=== PATIENT | male | born 1930 | race African-American/Black ===

== ENCOUNTER 2018-10-08 19:34 | Inpatient (IN) | payer MEDICARE, MEDICAID, OTHER ==
[~2018-10-08] VITALS: Ht 172.7 cm; Wt 77.1 kg
[2018-10-08 21:37] LABS: HEMOGLOBIN. 14.5 g/dL (14.0-18.0); MEAN CORPUSCULAR HEMOGLOBIN 26.8 pg (28.0-32.0); MEAN CORPUSCULAR VOLUME 81.3 fL (80.0-94.0); MEAN PLATELET VOLUME 9.2 fl (7.4-10.4); PLATELET 167 x1000/uL (130-400); RED BLOOD CELL COUNT 5.41 mill/uL (4.7-6.1); RED CELL DISTRIBUTION WIDTH 14.9 % (11.6-14.6)
[2018-10-08 21:44] LABS: CHLORIDE 98 mEq/L (98-107)
[2018-10-08] MEDS ORDERED: ONDANSETRON HCL 4MG/2ML INJ IV ONE (22:15)
[2018-10-08 22:54] LABS: PLATELET ESTIMATE NORMAL
[2018-10-08] MEDS ORDERED: ASPIRIN 81MG TABLET PO ONE (23:15)
[2018-10-08] MEDS ORDERED: NITROGLYCERIN 0.4MG TABLET SL SL PRN (23:15)
[2018-10-09] VITALS (7 sets, daily range): BP systolic 104–135; BP diastolic 53–72
[2018-10-09] MEDS ORDERED: ONDANSETRON HCL 4MG/2ML INJ IV PRN (00:30)
[2018-10-09] MEDS ORDERED: HYDROMORPHONE HCL/PF 2MG/ML CPJ IV PRN (00:30)
[2018-10-09] MEDS ORDERED: HYDRALAZINE 20MG/ML VIAL IV PRN (00:30)
[2018-10-09] MEDS ORDERED: HYDROCODONE/ACETAMINOPHEN 5/325MG TABLET PO PRN (00:30)
[2018-10-09] MEDS ORDERED: IPRATROPIUM/ALBUTEROL 0.5-3(2.5)MG/3ML NEB INH PRN (00:30)
[2018-10-09] MEDS ORDERED: ACETAMINOPHEN 325MG TABLET PO PRN (00:30)
[2018-10-09] MEDS ORDERED: GUAIFENESIN 200MG/10ML SUGAR FREE UDC PO PRN (00:30)
[2018-10-09] MEDS ORDERED: DOCUSATE SODIUM 100MG CAPSULE PO PRN (00:30)
[2018-10-09] MEDS ORDERED: MAGNESIUM/ALUMINUM HYDROXIDE/SIMETHICONE 30ML UDC PO PRN (00:30)
[2018-10-09] MEDS ORDERED: POTASSIUM CHLORIDE 20MEQ TABLET SR PO SCH (00:30)
[2018-10-09] MEDS ORDERED: DIPHENHYDRAMINE 50MG/ML VIAL IV PRN (00:30)
[2018-10-09] MEDS ORDERED: LORAZEPAM 2MG/ML CPJ IV PRN (00:30)
[2018-10-09] MEDS ORDERED: CLONIDINE 0.1MG TABLET PO PRN (00:30)
[2018-10-09] MEDS: PANTOPRAZOLE SODIUM 40 MG/VIAL IV SCH ×2 (00:37→09:28)
[2018-10-09] MEDS: SODIUM CHLORIDE 0.9% INJ 3ML FLUSH IVF SCH ×3 (05:43→21:14)
[2018-10-09 09:27] LABS: CREATINE KINASE 213 IU/L (39-308)
[2018-10-09] MEDS: ASPIRIN 81MG EC TABLET PO SCH (09:29)
[2018-10-09] MEDS: ENOXAPARIN 40MG/0.4ML SYR SUBCUT SCH (09:29)
[2018-10-09] MEDS ORDERED: REGADENOSON 0.4 MG/5 ML IV ONE (11:15)
[2018-10-09 16:04] LABS: CREATINE KINASE 180 IU/L (39-308)
[2018-10-09 16:05] LABS: CREATINE KINASE MB FRACTION 1.7 ng/mL (0.5-3.6)
[2018-10-10] VITALS: BP 117/72
[2018-10-10 04:00] VITALS: BP 107/68
[2018-10-10] MEDS: SODIUM CHLORIDE 0.9% INJ 3ML FLUSH IVF SCH ×3 (05:34→21:55)
[2018-10-10 07:47] LABS: HEMATOCRIT. 37.1 % (42.0-52.0); HEMOGLOBIN. 12.2 g/dL (14.0-18.0); MEAN CORPUSCULAR HEMOGLOBIN 26.2 pg (28.0-32.0); MEAN CORPUSCULAR VOLUME 79.7 fL (80.0-94.0); MEAN PLATELET VOLUME 8.9 fl (7.4-10.4); PLATELET 162 x1000/uL (130-400); RED BLOOD CELL COUNT 4.66 mill/uL (4.7-6.1); RED CELL DISTRIBUTION WIDTH 14.5 % (11.6-14.6)
[2018-10-10 08:00] VITALS: BP 123/75
[2018-10-10 08:00] LABS: CHLORIDE 100 mEq/L (98-107)
[2018-10-10 08:08] LABS: LDL CHOLESTEROL 79 mg/dL (5-100)
[2018-10-10 08:10] LABS: HDL CHOLESTEROL 35 mg/dL (40-59)
[2018-10-10] MEDS ORDERED: REGADENOSON 0.4 MG/5 ML IV ONE (08:16)
[2018-10-10] MEDS: ASPIRIN 81MG EC TABLET PO SCH (09:21)
[2018-10-10] MEDS: PANTOPRAZOLE SODIUM 40 MG/VIAL IV SCH ×2 (09:21→20:15)
[2018-10-10] MEDS: ENOXAPARIN 40MG/0.4ML SYR SUBCUT SCH (09:22)
[2018-10-10 11:31] LABS: PLATELET ESTIMATE NORMAL
[2018-10-10 12:00] VITALS: BP 121/73
[2018-10-10] MEDS: LOSARTAN POTASSIUM 25 MG TABLET PO SCH (13:29)
[2018-10-10 16:00] VITALS: BP 139/70
[2018-10-10 20:00] VITALS: BP 123/77
[2018-10-10] MEDS: CARVEDILOL 3.125 MG TABLET PO SCH (20:16)
[2018-10-11] VITALS: BP 121/76
[2018-10-11 04:00] VITALS: BP 114/80
[2018-10-11] MEDS: SODIUM CHLORIDE 0.9% INJ 3ML FLUSH IVF SCH ×2 (05:56→13:25)
[2018-10-11 08:00] VITALS: BP 125/60
[2018-10-11] MEDS: PANTOPRAZOLE SODIUM 40 MG/VIAL IV SCH (09:10)
[2018-10-11] MEDS: ASPIRIN 81MG EC TABLET PO SCH (09:12)
[2018-10-11] MEDS: LOSARTAN POTASSIUM 25 MG TABLET PO SCH (09:12)
[2018-10-11] MEDS: CARVEDILOL 3.125 MG TABLET PO SCH (09:12)
[2018-10-11] MEDS: ENOXAPARIN 40MG/0.4ML SYR SUBCUT SCH (09:16)
[2018-10-11 12:00] VITALS: BP 135/72
[2018-10-11 16:00] VITALS: BP 105/72
[2018-10-11 16:27] VITALS: BP 105/72
== END 2018-10-11 14:00 | disposition home health service (06) | DRG 313 ==
LOC: ER 19:45 → 5WST 23:52 → EDBEDREQTM 10-09 00:32 → EDBEDREQ 10-09 00:32 → ENRESERV 10-09 01:43
PROVIDERS: ADMIT Internal Medicine; ATTEND Internal Medicine
DX: R07.9 Chest pain, unspecified (principal); I42.9 Cardiomyopathy, unspecified; K21.9 Gastro-esophageal reflux disease without esophagitis; E87.6 Hypokalemia; R10.13 Epigastric pain
CPT/HCPCS: 36415; 71045; 78452; 80061; 82550; 82553; 83880; 84439; 84443; 84484; 93005; 93017; 93306; 96374; 97116; 97161; 99285; A9500; C9113; J1650; J2405; J2785